=== PATIENT | male | born 1990 | race Caucasian/White ===

== ENCOUNTER → 2018-02-06 13:18 | Outpatient (CLI) | payer SELFPAY ==
--- NOTE | 2018-02-06 13:28 | DI.RAD.S_ITS ---
PROCEDURE: XR SCAPULA RT INDICATIONS: Injury to right scapula TECHNIQUE: 2 views of the scapula were acquired. COMPARISON: None. FINDINGS: Bones: No fractures or dislocations. No suspicious bony lesions. Visualized ribs appear intact. Soft tissues: Overlying soft tissues appear normal. IMPRESSION: No trauma found. Dictated by: Gerardo Irene M.D. on 02/06/2018 at 14:05 Approved by: Gerardo Irene M.D. on 02/06/2018 at 14:05
== END ==
PROVIDERS: Visit Provider Physician Assistant
DX: S49.91XA Unspecified injury of right shoulder and upper arm, initial encounter (principal); M25.511 Pain in right shoulder
CPT/HCPCS: 73010

== ENCOUNTER 2018-10-19 09:00 | Emergency (ER) | payer SELFPAY ==
[2018-10-19 09:12] VITALS: BP 167/107; PULSE 133; RESP 16; TEMP 36.6; O2SAT 97
--- NOTE | 2018-10-19 09:56 | PC.NURSE ---
Pt now states he would like to go. Reiterated that he does not want to harm himself or others. Refused labs. Agreed to stay for Dr. Hargrove evaluation. Pt is a/o x 4. Identifies support from therapist.
--- NOTE | 2018-10-19 10:06 | ED.PSYCH ---
HPI - Psych General Chief Complaint: Psychiatric Symptoms Stated Complaint: emotionally hurting, wants to stop feeling, crying Time Seen by Provider: 10/19/18 09:44 Source: patient and police Mode of arrival: ambulatory Limitations: no limitations History of Present Illness HPI Narrative: Patient is a 27-year-old male presenting voluntarily by police with suicidal ideation. A phone call was made a [employer] unknown person concerned about patient. He apparently made a phone call to his ex- stating his that he was going to hurt himself is and to say goodbye to his son. He now states that he wants nothing more than to live for his son. He has never tried to commit suicide in the past he has no real plan to do so today. He overall feels lonely. He does not feel like he can talk to his parents for his ex-. He is trying to take care of his 3-year-old son. MD complaint: feels depressed Related Data Home Medications Medication Instructions Recorded Confirmed No Known Home Medications 10/19/18 10/19/18 Allergies Allergy/AdvReac Type Severity Reaction Status Date / Time No Known Drug Allergies Allergy Verified 02/06/18 11:54 Review of Systems Review of Systems ROS Unobtainable: All systems reviewed & are unremarkable except as noted in HPI and below Constitutional Denies body ache(s), Denies chills, Denies fever(s) and Denies headache(s) ENT Ears, Nose, Mouth, and Throat: Denies headache(s) Cardiovascular Denies chest pain, Denies lightheadedness and Denies dyspnea Respiratory Denies cough and Denies dyspnea Gastrointestinal Gastrointestinal: Denies nausea and Denies vomiting Musculoskeletal Denies deformity Integumentary/Breasts Denies erythema and Denies rash Neurologic Denies headache(s) Psychiatric Reports depression and Reports suicidal ideation [facility] Medical History Patient denies significant medical history (Acute) Social History Smoking Status: Current every day smoker alcohol intake: current (Social) substance use type: does not use Social History Smoking Status: Current every day smoker alcohol intake: current (Social) substance use type: does not use Exam Initial Vital Signs Initial Vital Signs: Vital Signs Temperature 97.8 F 10/19/18 09:12 Pulse Rate 133 H 10/19/18 09:12 Respiratory Rate 16 10/19/18 09:12 Blood Pressure 167/107 H 10/19/18 09:12 Pulse Oximetry 97 10/19/18 09:12 GENERAL: Anxious tearful young male no acute distress CARDIOVASCULAR: peripheral pulses in tact, cap refill <2 sec RESPIRATORY: No respiratory distress, speaks in full sentences without difficulty EXTREMITIES: Normal range of motion, no clubbing or edema. Neurovascularly intact NEUROLOGICAL: Cranial nerves II through XII grossly intact. Normal gait and speech. SKIN: Warm, dry, no petechiae, no rashes or lesions. Course Orders Ordered: ED Orders 10/19/18 09:38 Acetaminophen Stat Complete Blood Count AUTO DIFF Stat Comprehensive Metabolic Panel Stat Ethanol (ETOH) Stat Salicylate Stat Thyroid Stimulating Hormone Stat Urine Drug Screen, Rapid Stat Vital Signs - 8 hr 10/19/18 09:12 Temperature 97.8 F Pulse Rate 133 H Respiratory Rate 16 Blood Pressure 167/107 H Pulse Oximetry 97 MDM - Psych MDM Narrative Medical decision making narrative: Patient at this time does not meet any involuntary criteria. He has contracted for safety. I have called for [employer] to set up CPIT. They will call in within an hour of discharge and get out to see today. Patient agrees with this plan. He also understands that he may return to the ER at any time if he feels like he should need help. Discharge Plan Departure Patient Disposition: Home Clinical Impression: Depression Qualifiers: Depression Type: unspecified Qualified Code(s): F32.9 - Major depressive disorder, single episode, unspecified Discharge Date/Time: 10/19/18 10:25 Interventions: ED Discharge Assessment Last Done: 10/19/18 10:25 Instructions: DI for Suicidal Ideation-Adult Activity Restrictions/Additional Instructions: *You have been diagnosed with depression *What to do: [employer]/CPIT team will call you within an hour and set up an appointment to see you today. If you are feeling suicidal or having suicidal thoughts: Call: Suicide Hotline: Visit: www.[employer] Text: 728350 *Continue to take medications as directed *Follow up with your primary care provider in 2-3 days *Return to ER if you should have suicidal ideations, worsening depression or any new, worsening or concerning symptoms Prescriptions: No Action No Known Home Medications RF: 0 Referrals: [facility] Luis King [Outside]
--- NOTE | 2018-10-19 10:09 | ED_ITS ---
HPI - Psych General Chief Complaint: Psychiatric Symptoms Stated Complaint: emotionally hurting, wants to stop feeling, crying Time Seen by Provider: 10/19/18 09:44 Source: patient and police Mode of arrival: ambulatory Limitations: no limitations History of Present Illness HPI Narrative: Patient is a 27-year-old male presenting voluntarily by police with suicidal ideation. A phone call was made a [employer] unknown person concerned about patient. He apparently made a phone call to his ex- stating his that he was going to hurt himself is and to say goodbye to his son. He now states that he wants nothing more than to live for his son. He has never tried to commit suicide in the past he has no real plan to do so today. He overall feels lonely. He does not feel like he can talk to his parents for his ex-. He is trying to take care of his 3-year-old son. MD complaint: feels depressed Related Data Home Medications Medication Instructions Recorded Confirmed No Known Home Medications 10/19/18 10/19/18 Allergies Allergy/AdvReac Type Severity Reaction Status Date / Time No Known Drug Allergies Allergy Verified 02/06/18 11:54 Review of Systems Review of Systems ROS Unobtainable: All systems reviewed & are unremarkable except as noted in HPI and below Constitutional Denies body ache(s), Denies chills, Denies fever(s) and Denies headache(s) ENT Ears, Nose, Mouth, and Throat: Denies headache(s) Cardiovascular Denies chest pain, Denies lightheadedness and Denies dyspnea Respiratory Denies cough and Denies dyspnea Gastrointestinal Gastrointestinal: Denies nausea and Denies vomiting Musculoskeletal Denies deformity Integumentary/Breasts Denies erythema and Denies rash Neurologic Denies headache(s) Psychiatric Reports depression and Reports suicidal ideation [facility] Medical History Patient denies significant medical history (Acute) Social History Smoking Status: Current every day smoker alcohol intake: current (Social) substance use type: does not use Social History Smoking Status: Current every day smoker alcohol intake: current (Social) substance use type: does not use Exam Initial Vital Signs Initial Vital Signs: Vital Signs Temperature 97.8 F 10/19/18 09:12 Pulse Rate 133 H 10/19/18 09:12 Respiratory Rate 16 10/19/18 09:12 Blood Pressure 167/107 H 10/19/18 09:12 Pulse Oximetry 97 10/19/18 09:12 GENERAL: Anxious tearful young male no acute distress CARDIOVASCULAR: peripheral pulses in tact, cap refill <2 sec RESPIRATORY: No respiratory distress, speaks in full sentences without difficulty EXTREMITIES: Normal range of motion, no clubbing or edema. Neurovascularly intact NEUROLOGICAL: Cranial nerves II through XII grossly intact. Normal gait and speech. SKIN: Warm, dry, no petechiae, no rashes or lesions. Course Orders Ordered: ED Orders 10/19/18 09:38 Acetaminophen Stat Complete Blood Count AUTO DIFF Stat Comprehensive Metabolic Panel Stat Ethanol (ETOH) Stat Salicylate Stat Thyroid Stimulating Hormone Stat Urine Drug Screen, Rapid Stat Vital Signs - 8 hr 10/19/18 09:12 Temperature 97.8 F Pulse Rate 133 H Respiratory Rate 16 Blood Pressure 167/107 H Pulse Oximetry 97 MDM - Psych MDM Narrative Medical decision making narrative: Patient at this time does not meet any involuntary criteria. He has contracted for safety. I have called for [employer] to set up CPIT. They will call in within an hour of discharge and get out to see today. Patient agrees with this plan. He also understands that he may return to the ER at any time if he feels like he should need help. Discharge Plan Departure Patient Disposition: Home Clinical Impression: Depression Qualifiers: Depression Type: unspecified Qualified Code(s): F32.9 - Major depressive disorder, single episode, unspecified Discharge Date/Time: 10/19/18 10:25 Interventions: ED Discharge Assessment Last Done: 10/19/18 10:25 Instructions: DI for Suicidal Ideation-Adult Activity Restrictions/Additional Instructions: *You have been diagnosed with depression *What to do: [facility]/CPIT team will call you within an hour and set up an appointment to see you today. If you are feeling suicidal or having suicidal thoughts: Call: Suicide Hotline: Visit: www.[employer] Text: 362027 *Continue to take medications as directed *Follow up with your primary care provider in 2-3 days *Return to ER if you should have suicidal ideations, worsening depression or any new, worsening or concerning symptoms Prescriptions: No Action No Known Home Medications RF: 0 Referrals: [facility] Luis King [Outside]
--- NOTE | 2018-10-24 18:09 | CM.SWNOTE ---
Addendum entered by Corrina Larios R.N. 10/25/18 13:15: Patient returned call. States he is doing well. Would like a call back from [facility]. Left message for her to return his call. Original Note: ED [facility] Follow up call A note was left by Charline Truong who requested that an HOSPITAL INTERN call this pt to follow up as a CPIT appt had been arranged on the . I called to see if he had been able to engage and if he had been referred to a therapist. Left a message on pt's cell phone ( he identified himself on the vm) that this was a follow up call and that he was welcome to return the call if he could benefit from any support or resources. Will request that [facility] on Wednesday reaches out to this pt again
--- NOTE | 2018-10-31 19:25 | CM.SWNOTE ---
ED [facility] follow up call Charline Truong pt's RN had asked [facility] to f/u with pt. Made phone call last week. Pt returned call,but [facility] was not on schedule. Called this evening. Pt said he was doing well. He is not suicidal and is trying to deal with break up of relationship with . He reported that he sees his son frequently and that can get overwhelming, just because he is young, but he's doing well. (son is 3 years old) Pt reported that he gets together with some friends hwo have young sons and they have a small dirt bike track that he goes on with them. He is working on getting a boat ready to go to [place] in December. Pt wanted [facility] to let staff know he is doing well.
== END 2018-10-19 10:25 | disposition home or self-care (01) ==
PROVIDERS: Emergency Provider Emergency Medicine
DX: F32.9 Major depressive disorder, single episode, unspecified (principal)
CPT/HCPCS: 99282

== ENCOUNTER → 2020-01-03 15:46 | Outpatient (CLI) | payer OTHER, MEDICAID, SELFPAY ==
--- NOTE | 2020-01-03 15:47 | DI.RAD.S_ITS ---
PROCEDURE: XR ELBOW RT MIN 3V INDICATIONS: fall, elbow contusion, pain/swelling, r/o fx TECHNIQUE: 3 views of the elbow were acquired. COMPARISON: None. FINDINGS: Bones: No fractures or dislocations. No suspicious bony lesions. Soft tissues: Soft tissue swelling seen at the tip the olecranon. IMPRESSION: Soft tissue swelling seen at the tip of the olecranon, suspicious for bursitis. Although, hematoma or soft tissue contusion in the differential. No fracture. If the patient's symptoms do not improve recommend followup radiographs in 10 days to assess for healing sclerosis/occult injury. Dictated by: Oh Jack M.D. on 01/03/2020 at 16:07 Approved by: Oh Jack M.D. on 01/03/2020 at 16:09
== END ==
PROVIDERS: Referring Provider Physician Assistant; Visit Provider Physician Assistant
DX: S50.00XA Contusion of unspecified elbow, initial encounter (principal); M79.89 Other specified soft tissue disorders
CPT/HCPCS: 73080